=== PATIENT | male | born 1995 | race Two or more races ===

== ENCOUNTER 2018-02-21 21:00 | Emergency (ER) | payer SELFPAY ==
[2018-02-21] MEDS ORDERED: CLINDAMYCIN HCL 150 MG CAPSULE PO ONE (22:44)
[2018-02-21] MEDS ORDERED: IBUPROFEN 800 MG TABLET PO ONE (22:44)
--- NOTE | 2018-02-21 22:50 | ER Document Report ---
HPI - HPI Patient complains to provider of: toothache Time Seen by Provider: 02/21/18 21:54 Pain Level: 4 Context: Patient is a 22-year-old male presented to the emergency department complaining of a toothache for 7 days. Patient states his right lower back tooth has been hurting him on and on for the last 2 years. States it has been consistent for the last 7 days. Patient states he took Motrin around 10:00 this morning. Patient thinks the last time he was at a dentist was 2 years ago. Past medical history: None Medications: None Allergies: Penicillin Past Medical History - General Information source: Patient - Social History Smoking Status: Never Smoker Frequency of alcohol use: None Family History: Reviewed & Not Pertinent Patient has suicidal ideation: No Patient has homicidal ideation: No Renal/ Medical History: Denies: Hx Peritoneal Dialysis Vertical Provider Document - CONSTITUTIONAL Agree With Documented VS: Yes Notes: GENERAL: Alert, interacts well. No acute distress. HEAD: Normocephalic, atraumatic. EYES: Pupils equal, round, and reactive to light. Extraocular movements intact. ENT: Oral mucosa moist, tongue midline. Patient has obvious dental caries throughout entire dentition. Tooth #32 is the tooth that hurts the patient that is obviously fractured. Gums are minorly erythematous with no induration or fluctuance noted. No Humberto's angina noted. NECK: Full range of motion. Supple. Trachea midline. No lymphadenopathy appreciated LUNGS: Clear to auscultation bilaterally, no wheezes, rales, or rhonchi. No respiratory distress. HEART: Regular rate and rhythm. No murmur ABDOMEN: Soft, non-tender. Non-distended. Bowel sounds present in all 4 quadrants. EXTREMITIES: Moves all 4 extremities spontaneously. No edema, normal radial and dorsalis pedis pulses bilaterally. No cyanosis. BACK: no cervical, thoracic, lumbar midline tenderness. No saddle anesthesia, normal distal neurovascular exam. NEUROLOGICAL: Alert and oriented x3. Normal speech. cranial nerves II through XII grossly intact. PSYCH: Normal affect, normal mood. SKIN: Warm, dry, normal turgor. No rashes or lesions noted. - INFECTION CONTROL TRAVEL OUTSIDE OF THE [place] IN LAST 30 DAYS: No Course - Re-evaluation Re-evalutation: 02/21/18 22:49 Discussed with patient treatment with clindamycin in the emergency room. Also discussed prescription for home. Initial vitals did reveal patient was tachycardic. Patient states he ran into the emergency room because he thought we were closing. Vitals reassessed, heart rate 104, non-hypotensive, stable for discharge at this time. Patient had drank a full bottle of Gatorade. Patient states he does not wish to stay in the emergency department at this time. States he has an hour to drive home and would like to be discharged at this time. Discussed relative tachycardia with him at length at bedside and need for hydration status. Patient voices understanding and still wishes to be discharged. Information for [facility] given. - Vital Signs Vital signs: Temp Pulse Resp BP Pulse Ox 99.6 F 120 H 20 135/76 H 98 02/21/18 21:26 02/21/18 21:26 02/21/18 21:26 02/21/18 21:26 02/21/18 21:26 Discharge - Discharge Clinical Impression: Toothache, Dental caries Tooth fracture Qualifiers: Encounter type: initial encounter Fracture type: closed Qualified Code(s): S02.5XXA - Fracture of tooth (traumatic), initial encounter for closed fracture Condition: Stable Disposition: HOME, SELF-CARE Instructions: [facility], Clindamycin ([facility]), Toothache ([facility]) Prescriptions: Clindamycin HCl 300 mg PO Q6 7 Days capsule
[2018-02-21 23:33] VITALS: BP 116/98
== END 2018-02-22 00:05 | disposition home or self-care (01) ==
LOC: ER 21:00
DX: S02.5XXA Fracture of tooth (traumatic), initial encounter for closed fracture (principal); X58.XXXA Exposure to other specified factors, initial encounter; K08.89 Other specified disorders of teeth and supporting structures; K02.9 Dental caries, unspecified
CPT/HCPCS: 99282

== ENCOUNTER 2018-07-15 18:42 | Emergency (ER) | payer SELFPAY ==
[2018-07-15 18:49] VITALS: BP 132/67
== END 2018-07-15 19:00 | disposition left against medical advice (07) ==
LOC: ER 18:42
DX: Z53.21 Procedure and treatment not carried out due to patient leaving prior to being seen by health care provider (principal)

== ENCOUNTER 2018-07-29 12:31 | Emergency (ER) | payer SELFPAY ==
[2018-07-29] MEDS ORDERED: CLINDAMYCIN HCL 150 MG CAPSULE PO ONE (13:02)
[2018-07-29] MEDS ORDERED: IBUPROFEN 800 MG TABLET PO ONE (13:03)
--- NOTE | 2018-07-29 13:06 | ER Document Report ---
HPI - HPI Patient complains to provider of: dental pain Time Seen by Provider: 07/29/18 12:57 Onset: Yesterday Quality of pain: Achy Severity: Severe Pain Level: 5 Context: Patient presents emergency department with reports of dental pain that started last night. He denies biting into something that made it hurt. No other complaints such as fever vomiting diarrhea. Patient is not very verbal. Answering yes/no questions will not elaborate on his symptoms. Associated Symptoms: None Exacerbated by: Denies Relieved by: Denies Similar symptoms previously: No Recently seen / treated by doctor: No Past Medical History - General Information source: Patient - Social History Smoking Status: Unknown if Ever Smoked Cigarette use (# per day): No Family History: Reviewed & Not Pertinent Patient has suicidal ideation: No Patient has homicidal ideation: No - Medical History Medical History: Negative Renal/ Medical History: Denies: Hx Peritoneal Dialysis Surgical Hx: Negative Vertical Provider Document - CONSTITUTIONAL Agree With Documented VS: Yes Exam Limitations: No Limitations General Appearance: WD/WN, No Apparent Distress - Nontoxic looking - INFECTION CONTROL TRAVEL OUTSIDE OF THE [place] IN LAST 30 DAYS: No - HEENT HEENT: Atraumatic, Normal ENT Exam, Normocephalic. negative: Conjuctival Injection, Pharyngeal Erythema, Tympanic Membrane Red Mouth Diagram: 1 - Reports pain, no erythema no swelling no pustule patient opens mouth wide, clear voice no Ludwigs - NECK Neck: Normal Inspection, Supple. negative: Lymphadenopathy-Left, Lymphadenopathy-Right - RESPIRATORY Respiratory: Breath Sounds Normal, No Respiratory Distress - CARDIOVASCULAR Cardiovascular: Regular Rate - MUSCULOSKELETAL/EXTREMETIES Musculoskeletal/Extremeties: MAEW, FROM - NEURO Level of Consciousness: Awake, Alert, Appropriate Motor/Sensory: No Motor Deficit - DERM Integumentary: Warm, Dry Course - Re-evaluation Re-evalutation: 07/29/18 13:11 Patient was provided with written resources for dental assistance. He was educ ated on clindamycin and ibuprofen. He was instructed to follow-up with the dentist. He verbalized understanding Dictation of this chart was performed using voice recognition software; therefore, there may be some unintended grammatical errors. - Vital Signs Vital signs: Temp Pulse Resp BP Pulse Ox 98.4 F 85 16 138/78 H 96 07/29/18 12:37 07/29/18 12:37 07/29/18 12:37 07/29/18 12:37 07/29/18 12:37 Discharge - Discharge Clinical Impression: Pain, dental Condition: Stable Disposition: HOME, SELF-CARE Instructions: [facility], Clindamycin ([facility]), Toothache ([facility]) Additional Instructions: *You have been evaluated for dental pain *Take medications as prescribed *Follow up with dentist Tuesday, call for an appointment *Return to ED for worsening condition, changes, needs Monitor your blood pressure. Your blood pressure was elevated today. This may be because you were anxious, in pain or because you need medication. It is important to follow up with your primary care provider for full evaluation. Prescriptions: Clindamycin HCl [Cleocin 300 mg Capsule] 300 mg PO TID #21 capsule Ibuprofen [Motrin 800 mg Tablet] 800 mg PO TID #20 tablet Forms: Elevated Blood Pressure
[2018-07-29 13:24] VITALS: BP 125/71
== END 2018-07-29 13:25 | disposition home or self-care (01) ==
LOC: ER 12:31
DX: K08.89 Other specified disorders of teeth and supporting structures (principal)
CPT/HCPCS: 99282

== ENCOUNTER 2019-07-07 01:39 | Emergency (ER) | payer SELFPAY ==
[2019-07-07] MEDS ORDERED: LIDOCAINE 1%/EPINEPHRINE INJ 20 ML VIAL INJ ONE (02:42)
[2019-07-07 03:52] VITALS: BP 140/44
--- NOTE | 2019-07-07 03:59 | ER Document Report ---
HPI - HPI Patient complains to provider of: laceration Time Seen by Provider: 07/07/19 02:39 Pain Level: Denies Context: 23-year-old male presents emergency department with a laceration to the left dorsal forearm. Patient was actually seen at [facility], had a primary closure performed there, but then was riding on a golf cart at home, fell out of it, and the wound reopened. Patient received a tetanus immunization at the previous hospital. Patient complains of mild pain and there is very minimal bleeding. - CONSTITUTIONAL Constitutional: DENIES: Fever, Chills - NEURO Neurology: DENIES: Headache, Weakness, Vision blurred, Dizzinesss / Vertigo - MUSCULOSKELETAL Musculoskeletal: REPORTS: Extremity pain Past Medical History - Social History Smoking Status: Former Smoker Frequency of alcohol use: None Drug Abuse: None Family History: Reviewed & Not Pertinent Patient has suicidal ideation: No Patient has homicidal ideation: No Renal/ Medical History: Denies: Hx Peritoneal Dialysis Vertical Provider Document - CONSTITUTIONAL Notes: PHYSICAL EXAMINATION: Reviewed vital signs and charting by RN GENERAL: Alert, interacts well. No acute distress. HEAD: Normocephalic, atraumatic. EYES: Pupils equal and round. Extraocular movements intact. ENT: Oral mucosa moist, tongue midline. EXTREMITIES: Moves all 4 extremities spontaneously. No edema, No cyanosis. PSYCH: Normal affect, normal mood. SKIN: Warm, dry, normal turgor. 7 cm laceration over the dorsal aspect of the left distal forearm that does extend into the subcutaneous tissue. It is linear and there is minimal bleeding. - INFECTION CONTROL TRAVEL OUTSIDE OF THE [place] IN LAST 30 DAYS: No Course - Re-evaluation Re-evalutation: 07/07/19 04:04 Primary closure of the wound performed. 4-0 Ethilon used. 2 horizontal mattress sutures placed because wound had some tension. Anesthetized with lidocaine 1% with epinephrine. Tolerated procedure well. Tetanus immunization was given at previous hospital. Wound was dressed. No other complications. Stable for discharge. - Vital Signs Vital signs: Temp Pulse Resp BP Pulse Ox 98.6 F 116 H 18 115/66 97 07/07/19 01:46 07/07/19 02:38 07/07/19 03:01 07/07/19 03:01 07/07/19 03:01 Procedures - Laceration/Wound Repair Left Distal Arm Wound length (cm): 7 Wound's Depth, Shape: Superficial, Linear Laceration pre-procedure: Sterile PPE donned Anesthetic type: 1% Lidocaine w/epi Wound explored: Clean Wound Debrided: Minimal Wound Repaired With: Sutures Suture Size/Type: 4:0, Ethilon Post-procedure NV exam normal: Yes Discharge - Discharge Clinical Impression: Laceration Condition: Good Disposition: HOME, SELF-CARE Instructions: Soap Cleansing ([facility]), Antibiotic Ointment Protection ([facility]), Laceration Care ([facility]) Additional Instructions: Please return to your primary doctor, the ED, or an urgent care in 7 days for suture removal. Return immediately if you develop spreading redness around the wound, pus from the wound, worsening pain, or a fever of >101. Keep the area clean and dry. Wash gently with soap and water twice daily and cover with antibiotic ointment.
== END 2019-07-07 03:51 | disposition home or self-care (01) ==
LOC: ER 01:39
DX: T81.33XA Disruption of traumatic injury wound repair, initial encounter (principal); V86.99XA Unspecified occupant of other special all-terrain or other off-road motor vehicle injured in nontraffic accident, initial encounter; Y92.009 Unspecified place in unspecified non-institutional (private) residence as the place of occurrence of the external cause; Z87.891 Personal history of nicotine dependence
CPT/HCPCS: 99282; 12002; J3490

== ENCOUNTER 2019-07-18 14:09 | Emergency (ER) | payer SELFPAY ==
[2019-07-18 14:15] VITALS: BP 145/78
--- NOTE | 2019-07-18 14:17 | ER Document Report ---
HPI - HPI Patient complains to provider of: Suture removal Time Seen by Provider: 07/18/19 14:14 Quality of pain: No pain Pain Level: Denies Context: Patient presents for suture removal to a left forearm laceration that was repaired on 07/07/2019. Patient denies any problems or complaints with injury. Tetanus immunization was updated at that time. Associated Symptoms: None Exacerbated by: Denies Relieved by: Denies Similar symptoms previously: No Recently seen / treated by doctor: Yes - ROS ROS below otherwise negative: Yes Systems Reviewed and Negative: Yes All other systems reviewed and negative - CONSTITUTIONAL Constitutional: DENIES: Fever - NEURO Neurology: DENIES: Weakness - MUSCULOSKELETAL Musculoskeletal: DENIES: Extremity pain - DERM Skin Color: Normal Skin Problems: Laceration Past Medical History - General Information source: Patient - Social History Smoking Status: Never Smoker Frequency of alcohol use: None Drug Abuse: None Lives with: Family Family History: Reviewed & Not Pertinent - Medical History Medical History: Negative Renal/ Medical History: Denies: Hx Peritoneal Dialysis Surgical Hx: Negative Vertical Provider Document - CONSTITUTIONAL Agree With Documented VS: Yes Exam Limitations: No Limitations General Appearance: WD/WN, No Apparent Distress Notes: F Constitutional: Nontoxic appearance, no acute distress Eyes: Nonicteric, extraocular movements intact, sclera clear Cardiovascular: No JVD Respiratory: Nonlabored breathing, no use of accessory muscles, no tachypnea Muculoskeletal: Moves all extremities well, normal gait Skin: 7 cm sutured laceration to dorsal left forearm, wound edges approximated, normal color Neuro: Awake alert oriented, normal speech Psych: Normal mood and affect - INFECTION CONTROL TRAVEL OUTSIDE OF THE [place] IN LAST 30 DAYS: No Course - Vital Signs Vital signs: Temp Pulse Resp BP Pulse Ox 97.9 F 105 H 16 145/78 H 98 07/18/19 14:13 07/18/19 14:13 07/18/19 14:13 07/18/19 14:13 07/18/19 14:13 Discharge - Discharge Clinical Impression: Encounter for removal of sutures Condition: Stable Disposition: HOME, SELF-CARE Instructions: Suture Removal Additional Instructions: return immediately for any new or worsening symptoms Followup with your primary care provider for a recheck Referrals: [facility] [Provider Group] - Follow up as needed
== END 2019-07-18 14:34 | disposition home or self-care (01) ==
LOC: ER 14:09
DX: S51.812D Laceration without foreign body of left forearm, subsequent encounter (principal); X58.XXXD Exposure to other specified factors, subsequent encounter